=== PATIENT | female | born 1980 | race Caucasian/White ===

== ENCOUNTER 2019-03-17 19:50 | Emergency (ER) | payer OTHER ==
[2019-03-17] MEDS ORDERED: HALDOL DEC100 MG/1 M IM (20:07)
[2019-03-17] MEDS ORDERED: BROMOCRIPTINE2.5 MG PO (20:07)
[2019-03-17] MEDS ORDERED: METHYLPHENIDATE18 MG PO (20:07)
[2019-03-17] MEDS ORDERED: NUCYNTA50 MG PO (21:21)
== END 2019-03-17 22:09 | disposition home or self-care (01) ==
LOC: ED 19:50
DX: S52.571A Other intraarticular fracture of lower end of right radius, initial encounter for closed fracture (principal); W55.12XA Struck by horse, initial encounter; F17.200 Nicotine dependence, unspecified, uncomplicated; Z88.0 Allergy status to penicillin; Z88.1 Allergy status to other antibiotic agents; Z79.899 Other long term (current) drug therapy
CPT/HCPCS: 73110; 99283